=== PATIENT | male | born 1980 | race Caucasian/White ===

== ENCOUNTER 2016-08-15 09:56 | Inpatient (IN) | payer OTHER ==
[2016-08-15 10:26] VITALS: BMI 21.0
--- NOTE | 2016-08-15 12:40 | HP ---
CIWA Score - CIWA Score Nausea/Vomitin Muscle Tremors: 3 Anxiety: 3 Agitation: 3 Paroxysmal Sweats: 2 Orientation: 0-Oriented Tacttile Disturbances: 2-Mild Itch/Numbness/Burn Auditory Disturbances: 2-Mild Harshness/Frighten Visual Disturbances: 2-Mild Sensitivity Headache: 2-Mild CIWA-Ar Total Score: 22 Admission ROS BHS - HPI Chief Complaint: i need help to stop drinking alcohol,cocaine,marijuana,xanax, Allergies/Adverse Reactions: Allergies Allergy/AdvReac Type Severity Reaction Status Date / Time No Known Drug Allergies Allergy Verified 08/15/16 12:07 History of Present Illness: this 35 years old male with alcohol dependence,cocaine,marijuana,xanax, withdrawal symptom,never been in detox anxiety and depression gastritis nicotine dependence low back pain herniated disc with sciatica right multiple injury in 2013 fx left ribs,head injury,fx of left jaw Exam Limitations: No Limitations - Ebola screening Have you traveled outside of the country in the last 21 days: No Have you had contact with anyone from an Ebola affected area: No Have you been sick,other than usual withdrawal symptoms: No Do you have a fever: No - Review of Systems Constitutional: Loss of Appetite, Malaise, Night Sweats, Changes in sleep, Weakness, Unintentional Wgt. Loss EENT: reports: Nose Congestion, Other (fx of left mandible in 2013) Cardiac: reports: Palpitations GI: reports: Diarrhea, Nausea, Vomiting, Abdominal cramping, Other (gastritis) : reports: No Symptoms Reported Musculoskeletal: reports: Back Pain, Muscle Pain Integumentary: reports: Dryness Neuro: reports: Headache, Tremors Endocrine: reports: No Symptoms Reported Hematology: reports: No Symptoms Reported Psychiatric: reports: Anxious, Depressed Patient History - Patient Medical History Hx Anemia: No Hx Asthma: Yes (on albuterol inhaler) Hx Chronic Obstructive Pulmonary Disease (COPD): No Hx Cancer: No Hx Cardiac Disorders: No Hx Congestive Heart Failure: No Hx Hypertension: No Hx Hypercholesterolemia: No Hx Pacemaker: No HX Cerebrovascular Accident: No Hx Seizures: No Hx Dementia: No Hx Diabetes: No Hx Gastrointestinal Disorders: Yes (gastritis) Hx Liver Disease: No Hx Genitourinary Disorders: No Hx Sexually Transmitted Disorders: No Hx Renal Disease (ESRD): No Hx Thyroid Disease: No Hx Human Immunodeficiency Virus (HIV): No (02/10 negative last) Hx Hepatitis C: No Hx Depression: Yes (anxiety) Hx Suicide Attempt: No Hx Bipolar Disorder: No Hx Schizophrenia: No Other Medical History: no suicidal,no homicidal - Patient Surgical History Past Surgical History: Yes Other Surgical History: surgery for fx of left jaw - PPD History Previous Implant?: Yes Documented Results: Negative w/o proof Implanted On Prior R Admission?: No PPD to be Administered?: No - Smoking Cessation Smoking history: Current every day smoker Have you smoked in the past 12 months: Yes Aproximately how many cigarettes per day: 20 Hx Chewing Tobacco Use: No Initiated information on smoking cessation: Yes 'Breaking Loose' booklet given: 08/15/16 - Substance & Tx. History Hx Alcohol Use: Yes Hx Substance Use: Yes Substance Use Type: Alcohol, Cocaine, Marijuana, Tranquilizers - Substances Abused Alcohol Route: Oral Frequency: Daily Amount used: i pt daily vodka, 2 beer cans daily Age of first use: 13 Date of Last Use: 08/14/16 Cocaine Route: Inhalation Frequency: Daily Amount used: 1grm- $25 Age of first use: 17 Date of Last Use: 08/15/16 Marijuana/Hashish Route: Smoking Frequency: Daily Amount used: $5 Age of first use: 12 Date of Last Use: 08/14/16 Family Disease History - Family Disease History Family Disease History: Heart Disease: Father (alcohol) Admission Physical Exam BHS - Vital Signs Vital Signs: Vital Signs - 24 hr 08/15/16 10:24 Temperature 96 F L Pulse Rate 106 H Respiratory 16 Rate Blood Pressure 113/67 - Physical General Appearance: Yes: Moderate Distress, Tremorous, Irritable, Sweating, Anxious HEENTM: Yes: Hearing grossly Normal, Normal ENT Inspection, Pharynx Normal, Nasal Congestion, Rhinorrhea Respiratory: Yes: Lungs Clear, Normal Breath Sounds, No Respiratory Distress, Other (asthma) Neck: Yes: Within Normal Limits Breast: Yes: Within Normal Limits Cardiology: Yes: Regular Rhythm, Regular Rate, S1, S2 Abdominal: Yes: Within Normal Limits, Normal Bowel Sounds, Non Tender, Flat, Soft Genitourinary: Yes: Within Normal Limits Back: Yes: Within Normal Limits, Muscle Spasm Musculoskeletal: Yes: Back pain, Muscle Pain Extremities: Yes: Normal Range of Motion, Tremors Neurological: Yes: coil cutter II-XII NML intact, Fully Oriented, Alert, Motor Strength 5/5 Integumentary: Yes: Dry Lymphatic: Yes: Within Normal Limits - Diagnostic (1) Alcohol dependence with uncomplicated withdrawal Current Visit: Yes Status: Acute (2) Cocaine dependence Current Visit: Yes Status: Acute (3) Cannabis dependence Current Visit: Yes Status: Acute (4) Uncomplicated sedative, hypnotic or anxiolytic withdrawal Current Visit: Yes Status: Acute (5) Asthma Current Visit: Yes Status: Acute (6) Low back pain Current Visit: Yes Status: Acute (7) Sciatica, right side Current Visit: Yes Status: Acute (8) History of head injury Current Visit: Yes Status: Acute (9) Left rib fracture Current Visit: Yes Status: Acute (10) GERD (gastroesophageal reflux disease) Current Visit: Yes Status: Acute (11) Anxiety and depression Current Visit: Yes Status: Acute (12) Nicotine dependence Current Visit: Yes Status: Acute (13) Weight loss Current Visit: Yes Status: Acute (14) Mandible fracture Current Visit: Yes Status: Acute Cleared for Admission [facility] - Detox or Rehab [facility] Level of Care: Medically Managed Detox Regimen/Protocol: Librium [facility] Breath Alcohol Content Breath Alcohol Content: 0 Urine Drug Screen - Results Drug Screen Negative: No Urine Drug Screen Results: THC-Marijuana, VICKY-Cocaine, BZO-Benzodiazepines, TCA- Tricyclic Antidepress
[2016-08-15] MEDS ORDERED: MENTHOL/PHENOL 1 EACH UD MM PRN (13:10)
[2016-08-15] MEDS ORDERED: LOPERAMIDE HCL 2 MG CAPSULE PO PRN (13:10)
[2016-08-15] MEDS ORDERED: guaiFENesin/D-METHORPHAN HB 10 ML UNIT-DOSE CUPS PO PRN (13:10)
[2016-08-15] MEDS ORDERED: IBUPROFEN 400 MG TABLET (FP) PO PRN (13:10)
[2016-08-15] MEDS ORDERED: chlordiazePOXIDE HCL 25 MG CAPSULE PO PRN (13:10)
[2016-08-15] MEDS ORDERED: MAGNESIUM HYDROX 2400MG/30ML ORAL SUSPENSION 30 ML CUP PO PRN (13:10)
[2016-08-15] MEDS ORDERED: NICOTINE POLACRILEX 2 MG GUM BUC PRN (13:10)
[2016-08-15] MEDS ORDERED: ACETAMINOPHEN 325 MG TABLET (FP) PO PRN (13:10)
[2016-08-15] MEDS ORDERED: P-EPHED 60MG/TRIPROLIDI 2.5MG TABLET PO PRN (13:10)
[2016-08-15] MEDS ORDERED: MAG HYDROX/AL HYDROX/SIMETH 30 ML UNIT-DOSE CUP PO PRN (13:10)
[2016-08-15] MEDS ORDERED: hydrOXYzine PAMOATE 50 MG CAPSULE (FP) PO PRN (13:10)
[2016-08-15] MEDS ORDERED: diphenhydrAMINE HCL 50 MG CAPSULE PO PRN (13:10)
[2016-08-15] MEDS ORDERED: MAGNESIUM CITRATE 300 ML BOTTLE PO PRN (13:10)
[2016-08-15] MEDS ORDERED: ALBUTEROL SO4 6.7 GM HFA INHALER IH PRN (13:19)
[2016-08-15] MEDS ORDERED: chlordiazePOXIDE HCL 25 MG CAPSULE PO ONE (13:50)
[2016-08-15] MEDS: NICOTINE 21 MG/24 HOURS TOPICAL PATCH TD SCH (14:29)
[2016-08-15 17:47] LABS: URINE APPEARANCE CLEAR; URINE BILIRUBIN NEGATIVE (NEGATIVE); URINE BLOOD NEGATIVE (NEGATIVE); URINE COLOR YELLOW; URINE GLUCOSE (UA) NEGATIVE (NEGATIVE); URINE KETONE NEGATIVE (NEGATIVE); URINE LEUK ESTERASE NEGATIVE (NEGATIVE); URINE NITRITE NEGATIVE (NEGATIVE); URINE PROTEIN NEGATIVE (NEGATIVE); URINE UROBILINOGEN NEGATIVE E.U./dl (0.2-1.0)
[2016-08-15] MEDS: CYCLOBENZAPRINE HCL 10 MG TABLET (FP) PO PRN (19:35)
[2016-08-15] MEDS: chlordiazePOXIDE HCL 25 MG CAPSULE PO SCH ×2 (22:53→22:56)
[2016-08-15] MEDS: [UNRECOGNIZED DRUG - OTHER] PO SCH (22:56)
[2016-08-15] MEDS: ESOMEPRAZOLE MAG PO SCH (22:56)
[2016-08-15] MEDS: THIAMINE HCL 100 MG TABLET (FP) PO SCH (22:56)
[2016-08-15] MEDS: NAPROXEN PO SCH (22:56)
[2016-08-16] MEDS: chlordiazePOXIDE HCL 25 MG CAPSULE PO SCH ×4 (05:14→23:05)
--- NOTE | 2016-08-16 10:31 | PN ---
S CIWA - CIWA Score Nausea/Vomitin Muscle Tremors: 3 Anxiety: 3 Agitation: 3 Paroxysmal Sweats: 1-Minimal Palms Moist Orientation: 0-Oriented Tacttile Disturbances: 1-Very Mild Itch/Numbness Auditory Disturbances: 1-Very Mild Visual Disturbances: 1-Very Mild Sensitivity Headache: 2-Mild CIWA-Ar Total Score: 18 BHS Progress Note (SOAP) Subjective: ALERT,IRRITABLE,ANXIOUS,INTERRUPTED SLEEP,TREMOR Objective: 08/16/16 10:29 Vital Signs Temperature 97.2 F L 08/16/16 06:29 Pulse Rate 81 08/16/16 06:29 Respiratory Rate 18 08/16/16 06:29 Blood Pressure 99/60 08/16/16 06:29 O2 Sat by Pulse Oximetry (%) EKG NSR WITH SINUS ARRHYTHMIA NO CHEST PAIN,NO SOB,NO DIZZINESS Laboratory Last Values Urine Color Yellow 08/15/16 14:00 Urine Appearance Clear 08/15/16 14:00 Urine pH 5.0 (5.0-8.0) 08/15/16 14:00 Ur Specific [place] 1.029 (1.001-1.035) 08/15/16 14:00 Urine Protein Negative (NEGATIVE) 08/15/16 14:00 Urine Glucose (UA) Negative (NEGATIVE) 08/15/16 14:00 Urine Ketones Negative (NEGATIVE) 08/15/16 14:00 Urine Blood Negative (NEGATIVE) 08/15/16 14:00 Urine Nitrite Negative (NEGATIVE) 08/15/16 14:00 Urine Bilirubin Negative (NEGATIVE) 08/15/16 14:00 Urine Urobilinogen Negative E.U./dl (0.2-1.0) 08/15/16 14:00 Ur Leukocyte Esterase Negative (NEGATIVE) 08/15/16 14:00 LABS PENDING Assessment: 08/16/16 10:30 WITHDRAWAL SYMPTOM Plan: CONTINUE DETOX
[2016-08-16 11:01] LABS: HIV 1 & 2 AB NEGATIVE; HIV 1 AGp24 NEGATIVE
[2016-08-16] MEDS: NICOTINE 21 MG/24 HOURS TOPICAL PATCH TD SCH (11:15)
[2016-08-16] MEDS: PRENATAL VITAMINS W/ FOLIC ACID TABLET (FP) PO SCH (11:15)
[2016-08-16] MEDS: NAPROXEN PO SCH ×2 (11:16→22:55)
[2016-08-16] MEDS: [UNRECOGNIZED DRUG - OTHER] PO SCH ×2 (11:16→22:55)
[2016-08-16] MEDS: ESOMEPRAZOLE MAG PO SCH ×2 (11:16→22:55)
[2016-08-16 11:23] LABS: MCH 29.5 pg (25.7-33.7); MCHC 33.1 g/dl (32.0-35.9); MEAN CELL VOLUME 89.2 fl (80-96); MEAN PLT VOLUME 9.7 fl (7.5-11.1); PLATELET COUNT 271 K/MM3 (134-434); RDW 14.1 % (11.9-15.9)
--- NOTE | 2016-08-16 11:28 | EKG ---
Test Reason : Blood Pressure : / mmHG Vent. Rate : 082 BPM Atrial Rate : 082 BPM P-R Int : 146 ms QRS Dur : 074 ms QT Int : 348 ms P-R-T Axes : 075 019 049 degrees QTc Int : 406 ms SINUS RHYTHM WITH MARKED SINUS ARRHYTHMIA NO PREVIOUS ECGS AVAILABLE Confirmed by ALIZA SUN MD ([id number]) on 08/16/2016 11:27:49 AM Referred By: Confirmed By:ALIZA SUN MD
[2016-08-16 11:33] LABS: ALBUMIN 4.1 g/dl (3.4-5.0); CALCIUM 9.2 mg/dL (8.5-10.1); GLUCOSE,RANDOM 64 mg/dL (74-106)
[2016-08-16 11:36] LABS: ALK PHOS 111 U/L (45-117); ANION GAP 8 (8-16); BILIRUBIN,TOTAL 0.3 mg/dL (0.2-1.0); CO2 29 mmol/L (21-32); COCKROFT - GAULT 59.97; CREATININE 1.3 mg/dL (0.7-1.3); SGOT/AST 16 U/L (15-37); SGPT/ALT 19 U/L (12-78); TOT PROT 7.4 g/dl (6.4-8.2)
[2016-08-16 11:50] LABS: SICKLE CELL SCREEN NEGATIVE (NEGATIVE)
--- NOTE | 2016-08-16 13:38 | CONSULT ---
[facility] Psychiatric Consult - Data Date of interview: 08/16/16 Admission source: [facility] Identifying data: First admission to [facility] for this 35 y/o male seeking detox treatment for alcohol,cocaine,marijuana and xnax dependence.Patient is a father of five (common-law),domiciled,unemployed and supported on food stamps. Substance Abuse History: - Smoking Cessation. Smoking history: Current every day smoker. Have you smoked in the past 12 months: Yes. Aproximately how many cigarettes per day: 20. Hx Chewing Tobacco Use: No. Initiated information on smoking cessation: Yes. 'Breaking Loose' booklet given: 08/15/16. - Substance & Tx. History. Hx Alcohol Use: Yes. Hx Substance Use: Yes. Substance Use Type : Alcohol, Cocaine, Marijuana, Tranquilizers. - Substances Abused. Alcohol. Route: Oral. Frequency: Daily. Amount used: i pt daily vodka, 2 beer cans daily. Age of first use: 13. Date of Last Use: 08/14/16. Cocaine. Route: Inhalation. Frequency: Daily. Amount used: 1grm- $25. Age of first use: 17. Date of Last Use: 08/15/16. Marijuana/Hashish. Route: Smoking. Frequency: Daily. Amount used: $5. Age of first use: 12. Date of Last Use: 08/14/16. Confirmed by patient. Medical History: History of gastritis,GERD,bronchial asthma,herniated disk ( lumbar spine),chronic back pain and past orthopedic care for fracture of left mandible (2003). Psychiatric History: Patient denies. Physical/Sexual Abuse/Trauma History: Patient denies. Additional Comment: Urine Drug Screen Results: THC-Marijuana, VICKY-Cocaine, BZO- Benzodiazepines, TCA-Tricyclic Antidepressant.Noted. Mental Status Exam - Mental Status Exam Alert and Oriented to: Time, Place Cognitive Function: Good Patient Appearance: Well Groomed Mood: Withdrawn, Anxious, Apprehensive Affect: Mood Congruent, Constricted Patient Behavior: Fatigued, Appropriate, Cooperative Speech Pattern: Clear (bilingual) Voice Loudness: Normal Thought Process: Goal Oriented Thought Disorder: Not Present Hallucinations: Denies Suicidal Ideation: Denies Homicidal Ideation: Denies Insight/Judgement: Poor Sleep: Well Appetite: Good Muscle strength/Tone: Normal Gait/Station: Normal Psychiatric Findings - Problem List ([place] 1, 2,3) (1) Alcohol dependence with uncomplicated withdrawal Current Visit: Yes Status: Acute (2) Cannabis dependence Current Visit: Yes Status: Acute (3) Cocaine dependence Current Visit: Yes Status: Acute (4) Uncomplicated sedative, hypnotic or anxiolytic withdrawal Current Visit: Yes Status: Acute (5) Nicotine dependence Current Visit: Yes Status: Acute (6) Substance induced mood disorder Current Visit: Yes Status: Acute (7) Asthma Current Visit: Yes Status: Chronic (8) GERD (gastroesophageal reflux disease) Current Visit: Yes Status: Chronic (9) History of head injury Current Visit: Yes Status: Chronic (10) Low back pain Current Visit: Yes Status: Chronic (11) Sciatica, right side Current Visit: Yes Status: Chronic - Initial Treatment Plan Initial Treatment Plan: Psychoeducation.Detoxification.Observation.
[2016-08-16] MEDS: CYCLOBENZAPRINE HCL 10 MG TABLET (FP) PO PRN (17:22)
[2016-08-16] MEDS: THIAMINE HCL 100 MG TABLET (FP) PO SCH (22:55)
[2016-08-17] MEDS: chlordiazePOXIDE HCL 25 MG CAPSULE PO SCH ×2 (05:46→11:35)
[2016-08-17] MEDS: NAPROXEN PO SCH (11:34)
[2016-08-17] MEDS: ESOMEPRAZOLE MAG PO SCH (11:34)
[2016-08-17] MEDS: [UNRECOGNIZED DRUG - OTHER] PO SCH (11:34)
[2016-08-17] MEDS: NICOTINE 21 MG/24 HOURS TOPICAL PATCH TD SCH (11:35)
[2016-08-17] MEDS: PRENATAL VITAMINS W/ FOLIC ACID TABLET (FP) PO SCH (11:35)
[2016-08-17] MEDS: CYCLOBENZAPRINE HCL 10 MG TABLET (FP) PO PRN (11:36)
[2016-08-17 14:30] VITALS: BP 106/62; PULSE 114; TEMP 98.4
[2016-08-17] MEDS ORDERED: chlordiazePOXIDE 5 MG CAPSULE PO SCH (17:00)
--- NOTE | 2016-08-17 17:07 | PN ---
S CIWA - CIWA Score Nausea/Vomitin Muscle Tremors: 3 Anxiety: 2 Agitation: 2 Paroxysmal Sweats: 3 Orientation: 1-Uncertain about Date Tacttile Disturbances: 0-None Auditory Disturbances: 0-None Visual Disturbances: 3-Moderate Sensitivity Headache: 0-None Present CIWA-Ar Total Score: 16 BHS Progress Note (SOAP) Subjective: Stomach Cramping, Tremors, Fatigue, Sweating, Lower Back ache. Objective: PT. A & O X 2 (DISORIENTED ABOUT DAY / DATE). 08/17/16 17:05 Vital Signs Temperature 98.4 F 08/17/16 14:29 Pulse Rate 114 H 08/17/16 14:29 Respiratory Rate 16 08/17/16 14:29 Blood Pressure 106/62 08/17/16 14:29 O2 Sat by Pulse Oximetry (%) Laboratory Last Values WBC 11.0 K/mm3 (4.0-10.0) H 08/16/16 06:00 RBC 4.85 M/mm3 (4.00-5.60) 08/16/16 06:00 Hgb 14.3 GM/dL (11.7-16.9) 08/16/16 06:00 Hct 43.3 % (35.4-49) 08/16/16 06:00 MCV 89.2 fl (80-96) 08/16/16 06:00 MCHC 33.1 g/dl (32.0-35.9) 08/16/16 06:00 RDW 14.1 % (11.9-15.9) 08/16/16 06:00 Plt Count 271 K/MM3 (134-434) 08/16/16 06:00 MPV 9.7 fl (7.5-11.1) 08/16/16 06:00 Sickle Cell Screen Negative (NEGATIVE) 08/16/16 06:00 Sodium 142 mmol/L (136-145) 08/16/16 06:00 Potassium 4.1 mmol/L (3.5-5.1) 08/16/16 06:00 Chloride 105 mmol/L (98-107) 08/16/16 06:00 Carbon Dioxide 29 mmol/L (21-32) 08/16/16 06:00 Anion Gap 8 (8-16) 08/16/16 06:00 BUN 17 mg/dL (7-18) 08/16/16 06:00 Creatinine 1.3 mg/dL (0.7-1.3) 08/16/16 06:00 Creat Clearance w eGFR > 60 (>60) 08/16/16 06:00 Random Glucose 64 mg/dL (74-106) L 08/16/16 06:00 Calcium 9.2 mg/dL (8.5-10.1) 08/16/16 06:00 Total Bilirubin 0.3 mg/dL (0.2-1.0) 08/16/16 06:00 AST 16 U/L (15-37) 08/16/16 06:00 ALT 19 U/L (12-78) 08/16/16 06:00 Alkaline Phosphatase 111 U/L (45-117) 08/16/16 06:00 Total Protein 7.4 g/dl (6.4-8.2) 08/16/16 06:00 Albumin 4.1 g/dl (3.4-5.0) 08/16/16 06:00 Urine Color Yellow 08/15/16 14:00 Urine Appearance Clear 08/15/16 14:00 Urine pH 5.0 (5.0-8.0) 08/15/16 14:00 Ur Specific [place] 1.029 (1.001-1.035) 08/15/16 14:00 Urine Protein Negative (NEGATIVE) 08/15/16 14:00 Urine Glucose (UA) Negative (NEGATIVE) 08/15/16 14:00 Urine Ketones Negative (NEGATIVE) 08/15/16 14:00 Urine Blood Negative (NEGATIVE) 08/15/16 14:00 Urine Nitrite Negative (NEGATIVE) 08/15/16 14:00 Urine Bilirubin Negative (NEGATIVE) 08/15/16 14:00 Urine Urobilinogen Negative E.U./dl (0.2-1.0) 08/15/16 14:00 Ur Leukocyte Esterase Negative (NEGATIVE) 08/15/16 14:00 RPR Titer Nonreactive (NONREACTIVE) 08/16/16 06:00 HIV 1&2 Antibody Screen Negative 08/15/16 12:00 HIV P24 Antigen Negative 08/15/16 12:00 LABS NOTED. Assessment: 08/17/16 17:06 WITHDRAWAL SYMPTOMS. Plan: CONTINUE DETOX. ADVISED PATIENT TO FOLLOW-UP WITH CHECKING CLERK / REHAB MEDICAL PROVIDER AFTER DISCHARGE FROM DETOX FOR GENERAL MEDICAL ASSESSMENT AND FOR ABNORMAL ADMISSION LAB VALUES.
--- NOTE | 2016-08-17 17:56 | DS ---
[facility] Detox Discharge Summary Admission Date: 08/15/16 Discharge Date: 08/17/16 - History Present History: Alcohol Dependence, Cannabis Dependence, Cocaine Dependence, Sedative Dependence Additional Comments: ADVISED PATIENT TO FOLLOW-UP WITH [facility] FOR GENERAL MEDICAL ASSESSMENT. Pertinent Past History: Asthma, Anxiety, Gastritis, - Physical Exam Results Vital Signs: Vital Signs Temperature 98.4 F 08/17/16 14:29 Pulse Rate 114 H 08/17/16 14:29 Respiratory Rate 16 08/17/16 14:29 Blood Pressure 106/62 08/17/16 14:29 O2 Sat by Pulse Oximetry (%) Pertinent Admission Physical Exam Findings: WITHDRAWAL SYMPTOMS. Laboratory Last Values WBC 11.0 K/mm3 (4.0-10.0) H 08/16/16 06:00 RBC 4.85 M/mm3 (4.00-5.60) 08/16/16 06:00 Hgb 14.3 GM/dL (11.7-16.9) 08/16/16 06:00 Hct 43.3 % (35.4-49) 08/16/16 06:00 MCV 89.2 fl (80-96) 08/16/16 06:00 MCHC 33.1 g/dl (32.0-35.9) 08/16/16 06:00 RDW 14.1 % (11.9-15.9) 08/16/16 06:00 Plt Count 271 K/MM3 (134-434) 08/16/16 06:00 MPV 9.7 fl (7.5-11.1) 08/16/16 06:00 Sickle Cell Screen Negative (NEGATIVE) 08/16/16 06:00 Sodium 142 mmol/L (136-145) 08/16/16 06:00 Potassium 4.1 mmol/L (3.5-5.1) 08/16/16 06:00 Chloride 105 mmol/L (98-107) 08/16/16 06:00 Carbon Dioxide 29 mmol/L (21-32) 08/16/16 06:00 Anion Gap 8 (8-16) 08/16/16 06:00 BUN 17 mg/dL (7-18) 08/16/16 06:00 Creatinine 1.3 mg/dL (0.7-1.3) 08/16/16 06:00 Creat Clearance w eGFR > 60 (>60) 08/16/16 06:00 Random Glucose 64 mg/dL (74-106) L 08/16/16 06:00 Calcium 9.2 mg/dL (8.5-10.1) 08/16/16 06:00 Total Bilirubin 0.3 mg/dL (0.2-1.0) 08/16/16 06:00 AST 16 U/L (15-37) 08/16/16 06:00 ALT 19 U/L (12-78) 08/16/16 06:00 Alkaline Phosphatase 111 U/L (45-117) 08/16/16 06:00 Total Protein 7.4 g/dl (6.4-8.2) 08/16/16 06:00 Albumin 4.1 g/dl (3.4-5.0) 08/16/16 06:00 Urine Color Yellow 08/15/16 14:00 Urine Appearance Clear 08/15/16 14:00 Urine pH 5.0 (5.0-8.0) 08/15/16 14:00 Ur Specific [place] 1.029 (1.001-1.035) 08/15/16 14:00 Urine Protein Negative (NEGATIVE) 08/15/16 14:00 Urine Glucose (UA) Negative (NEGATIVE) 08/15/16 14:00 Urine Ketones Negative (NEGATIVE) 08/15/16 14:00 Urine Blood Negative (NEGATIVE) 08/15/16 14:00 Urine Nitrite Negative (NEGATIVE) 08/15/16 14:00 Urine Bilirubin Negative (NEGATIVE) 08/15/16 14:00 Urine Urobilinogen Negative E.U./dl (0.2-1.0) 08/15/16 14:00 Ur Leukocyte Esterase Negative (NEGATIVE) 08/15/16 14:00 RPR Titer Nonreactive (NONREACTIVE) 08/16/16 06:00 HIV 1&2 Antibody Screen Negative 08/15/16 12:00 HIV P24 Antigen Negative 08/15/16 12:00 LABS NOTED. - Treatment Hospital Course: Detoxed Safely - Medication Discharge Medications: Ambulatory Orders Albuterol Sulfate Inhaler - [Ventolin Hfa Inhaler -] 1 - 2 inh PO QID PRN Cyclobenzaprine HCl [Flexeril 10 mg] 10 mg PO BID PRN 08/15/16 Naproxen/Esomeprazole Mag [Vimovo Dr 500-20 mg Tablet] 1 each PO BID 08/15/16 - Diagnosis (1) Alcohol dependence with uncomplicated withdrawal Current Visit: Yes Status: Acute (2) Anxiety and depression Current Visit: Yes Status: Chronic (3) Cannabis dependence Current Visit: Yes Status: Acute (4) Cocaine dependence Current Visit: Yes Status: Acute Qualifiers: Substance use status: uncomplicated Qualified Code(s): F14.20 - Cocaine dependence, uncomplicated (5) Left rib fracture Current Visit: Yes Status: Acute Qualifiers: Encounter type: sequela (6) Mandible fracture Current Visit: Yes Status: Acute Qualifiers: Encounter type: sequela Laterality: unspecified laterality (7) Nicotine dependence Current Visit: Yes Status: Chronic Qualifiers: Nicotine product type: cigarettes Substance use status: uncomplicated Qualified Code(s): F17.210 - Nicotine dependence, cigarettes, uncomplicated (8) Substance induced mood disorder Current Visit: Yes Status: Acute (9) Uncomplicated sedative, hypnotic or anxiolytic withdrawal Current Visit: Yes Status: Acute (10) Weight loss Current Visit: Yes Status: Acute (11) Asthma Current Visit: Yes Status: Chronic Qualifiers: Asthma severity: mild intermittent Asthma complication type: uncomplicated Qualified Code(s): J45.20 - Mild intermittent asthma, uncomplicated (12) GERD (gastroesophageal reflux disease) Current Visit: Yes Status: Chronic Qualifiers: Esophagitis presence: without esophagitis Qualified Code(s): K21.9 - Gastro-esophageal reflux disease without esophagitis (13) History of head injury Current Visit: Yes Status: Chronic (14) Low back pain Current Visit: Yes Status: Chronic Qualifiers: Chronicity: unspecified Back pain laterality: unspecified Sciatica presence: unspecified whether sciatica present Qualified Code(s): M54.5 - Low back pain (15) Sciatica, right side Current Visit: Yes Status: Chronic - AMA Did Patient Leave Against Medical Advice: Yes (PATIENT HAD FAMILY EMERGENCY TO ATTEND TO AND COULD NOT COMPLETE DETOX.)
[2016-08-18] MEDS ORDERED: chlordiazePOXIDE HCL 10 MG CAPSULE PO SCH (17:00)
== END 2016-08-17 18:15 | disposition left against medical advice (07) | DRG 770 ==
LOC: YASAS 09:56 → Y6N 13:20
PROVIDERS: ADMIT Internal Medicine Addiction Medicine; ATTEND Internal Medicine Addiction Medicine
PROC: HZ2ZZZZ Detoxification Services for Substance Abuse Treatment (ICD-10-PCS; principal; 2016-08-17)
DX: F10.230 Alcohol dependence with withdrawal, uncomplicated (principal); F13.230 Sedative, hypnotic or anxiolytic dependence with withdrawal, uncomplicated; F14.20 Cocaine dependence, uncomplicated; F12.20 Cannabis dependence, uncomplicated; F17.210 Nicotine dependence, cigarettes, uncomplicated; F19.24 Other psychoactive substance dependence with psychoactive substance-induced mood disorder; J45.20 Mild intermittent asthma, uncomplicated; K21.9 Gastro-esophageal reflux disease without esophagitis; M54.41 Lumbago with sciatica, right side; R63.4 Abnormal weight loss; Z68.21 Body mass index [BMI] 21.0-21.9, adult; Z87.81 Personal history of (healed) traumatic fracture
CPT/HCPCS: 36415; 80053; 81003; 85027; 85660; 86593; 87389; 93005; 93010

== ENCOUNTER 2016-08-20 10:22 | Inpatient (IN) | payer OTHER ==
[2016-08-20 12:22] VITALS: BMI 22.1
--- NOTE | 2016-08-20 13:02 | HP ---
Admission ROS [facility] Chief Complaint: I need to be here for rehab for continue treatment. Allergies/Adverse Reactions: Allergies Allergy/AdvReac Type Severity Reaction Status Date / Time No Known Drug Allergies Allergy Verified 08/20/16 12:45 History of Present Illness: pt is a 35yr old male with a history of alcohol and cocaine dependence seeking detox for treatment. Exam Limitations: No Limitations - Ebola screening Have you traveled outside of the country in the last 21 days: No Have you had contact with anyone from an Ebola affected area: No Have you been sick,other than usual withdrawal symptoms: No - Review of Systems Constitutional: Chills, Loss of Appetite, Night Sweats, Changes in sleep EENT: reports: Tearing Respiratory: reports: Cough Cardiac: reports: No Symptoms Reported GI: reports: Poor Fluid Intake, Indigestion : reports: No Symptoms Reported Musculoskeletal: reports: Back Pain Integumentary: reports: Flushing, Sweating Neuro: reports: Headache, Tingling, Tremors Endocrine: reports: Excessive Sweating, Flushing Hematology: reports: No Symptoms Reported Psychiatric: reports: Judgement Intact, Mood/Affect Appropiate, Orientated x3, Agitated, Anxious Other Systems: Reviewed and Negative Patient History - Patient Medical History Hx Anemia: No Hx Asthma: Yes (on albuterol inhaler) Hx Chronic Obstructive Pulmonary Disease (COPD): No Hx Cancer: No Hx Cardiac Disorders: No Hx Congestive Heart Failure: No Hx Hypertension: No Hx Hypercholesterolemia: No Hx Pacemaker: No HX Cerebrovascular Accident: No Hx Seizures: No Hx Dementia: No Hx Diabetes: No Hx Gastrointestinal Disorders: Yes (gastritis) Hx Liver Disease: No Hx Genitourinary Disorders: No Hx Sexually Transmitted Disorders: No Hx Renal Disease (ESRD): No Hx Thyroid Disease: No Hx Human Immunodeficiency Virus (HIV): No (negative) Hx Hepatitis C: No (negative) Hx Depression: Yes (anxiety) Hx Suicide Attempt: No (denies) Hx Bipolar Disorder: No Hx Schizophrenia: No - Patient Surgical History Past Surgical History: Yes Hx Neurologic Surgery: (posterior scalp 57 stitiches after razor cut 2013) Hx Cataract Extraction: No Hx Cardiac Surgery: No Hx Lung Surgery: No Hx Breast Surgery: No Hx Breast Biopsy: No Hx Abdominal Surgery: No Hx Appendectomy: No Hx Cholecystectomy: No Hx Genitourinary Surgery: No Hx Section: No Hx Orthopedic Surgery: No Other Surgical History: surgery for fx of left jaw - PPD History Previous Implant?: Yes Documented Results: Negative w/o proof PPD to be Administered?: Yes - Reproductive History Patient is a Female of Child Bearing Age (11 -55 yrs old): No - Smoking Cessation Smoking history: Current every day smoker Have you smoked in the past 12 months: Yes Aproximately how many cigarettes per day: 20 Hx Chewing Tobacco Use: No Initiated information on smoking cessation: Yes 'Breaking Loose' booklet given: 08/20/16 - Substance & Tx. History Hx Alcohol Use: Yes Hx Substance Use: Yes Substance Use Type: Alcohol, Cocaine Hx Substance Use Treatment: Yes - Substances Abused Alcohol Route: Oral Frequency: 1-2 times per week Amount used: 1-3 beer Age of first use: 13 Date of Last Use: 08/17/16 Cocaine Route: Inhalation Frequency: 1-2 times per week Amount used: 1 gram Age of first use: 13 Date of Last Use: 08/17/16 Marijuana/Hashish Route: Smoking Frequency: Daily Amount used: 1 joint Age of first use: 13 Date of Last Use: 08/19/16 Family Disease History - Family Disease History Family Disease History: Heart Disease: Father (alcohol) Admission Physical Exam [facility] - Vital Signs Vital Signs: Vital Signs - 24 hr 08/20/16 12:19 Temperature 95.4 F L Pulse Rate 103 H Respiratory 20 Rate Blood Pressure 127/72 - Physical General Appearance: Yes: Appropriately Dressed, Moderate Distress, Thin, Irritable, Anxious HEENTM: Yes: Normal Voice Respiratory: Yes: Lungs Clear, Normal Breath Sounds, No Respiratory Distress Neck: Yes: No masses,lesions,Nodules Breast: Yes: Within Normal Limits Cardiology: Yes: Regular Rhythm, Regular Rate, S1, S2 Abdominal: Yes: Normal Bowel Sounds, Non Tender, Soft Genitourinary: Yes: Within Normal Limits Back: Yes: Normal Inspection Musculoskeletal: Yes: full range of Motion Extremities: Yes: Normal Capillary Refill, Tremors Neurological: Yes: Fully Oriented, Alert, Normal Response Integumentary: Yes: Normal Color Lymphatic: Yes: Within Normal Limits - Diagnostic (1) Asthma Current Visit: Yes Status: Chronic Qualifiers: Asthma severity: mild intermittent Asthma complication type: uncomplicated Qualified Code(s): J45.20 - Mild intermittent asthma, uncomplicated (2) Cannabis dependence Current Visit: Yes Status: Chronic (3) Cocaine dependence Current Visit: Yes Status: Chronic Qualifiers: Substance use status: uncomplicated Qualified Code(s): F14.20 - Cocaine dependence, uncomplicated (4) GERD (gastroesophageal reflux disease) Current Visit: Yes Status: Chronic Qualifiers: Esophagitis presence: without esophagitis Qualified Code(s): K21.9 - Gastro-esophageal reflux disease without esophagitis (5) Low back pain Current Visit: Yes Status: Chronic Qualifiers: Chronicity: chronic Back pain laterality: unspecified Sciatica presence: unspecified whether sciatica present Qualified Code(s): M54.5 - Low back pain; G89.29 - Other chronic pain (6) Nicotine dependence Current Visit: Yes Status: Chronic Qualifiers: Nicotine product type: cigarettes Substance use status: uncomplicated Qualified Code(s): F17.210 - Nicotine dependence, cigarettes, uncomplicated Cleared for Admission [facility] - Detox or Rehab [facility] Level of Care: Medically Managed Claeared for Rehab Admission: Yes S Breath Alcohol Content Breath Alcohol Content: 0 Urine Drug Screen - Results Drug Screen Negative: No Urine Drug Screen Results: THC-Marijuana, VICKY-Cocaine, BZO-Benzodiazepines, TCA- Tricyclic Antidepress
[2016-08-20] MEDS ORDERED: guaiFENesin/D-METHORPHAN HB 10 ML UNIT-DOSE CUPS PO PRN (13:30)
[2016-08-20] MEDS ORDERED: IBUPROFEN 400 MG TABLET (FP) PO PRN (13:30)
[2016-08-20] MEDS ORDERED: MENTHOL/PHENOL 1 EACH UD MM PRN (13:30)
[2016-08-20] MEDS ORDERED: P-EPHED 60MG/TRIPROLIDI 2.5MG TABLET PO PRN (13:30)
[2016-08-20] MEDS ORDERED: ACETAMINOPHEN 325 MG TABLET (FP) PO PRN (13:30)
[2016-08-20] MEDS ORDERED: MAG HYDROX/AL HYDROX/SIMETH 30 ML UNIT-DOSE CUP PO PRN (13:30)
[2016-08-20] MEDS ORDERED: MAGNESIUM CITRATE 300 ML BOTTLE PO PRN (13:30)
[2016-08-20] MEDS ORDERED: MAGNESIUM HYDROX 2400MG/30ML ORAL SUSPENSION 30 ML CUP PO PRN (13:30)
[2016-08-20] MEDS ORDERED: LOPERAMIDE HCL 2 MG CAPSULE PO PRN (13:30)
[2016-08-20] MEDS ORDERED: PT OWN MED DRAWER 7, Y5N ONE (15:40)
[2016-08-20] MEDS: hydrOXYzine PAMOATE 50 MG CAPSULE (FP) PO PRN (17:43)
[2016-08-20 17:59] LABS: URINE APPEARANCE CLEAR; URINE BILIRUBIN NEGATIVE (NEGATIVE); URINE BLOOD NEGATIVE (NEGATIVE); URINE COLOR LTYELLOW; URINE GLUCOSE (UA) NEGATIVE (NEGATIVE); URINE KETONE NEGATIVE (NEGATIVE); URINE NITRITE NEGATIVE (NEGATIVE); URINE PROTEIN NEGATIVE (NEGATIVE); URINE UROBILINOGEN NEGATIVE E.U./dl (0.2-1.0)
[2016-08-20 18:19] LABS: URINE LEUK ESTERASE TRACE (NEGATIVE)
[2016-08-20 20:31] LABS: URINE MUCUS RARE; URINE RBC 3 /hpf (0-3); URINE WBC 6 /hpf (3-5)
[2016-08-20] MEDS: CYCLOBENZAPRINE HCL 10 MG TABLET (FP) PO PRN (21:24)
[2016-08-20] MEDS: NAPROXEN 500 MG TABLET (FP) PO SCH (21:24)
[2016-08-20] MEDS: THIAMINE HCL 100 MG TABLET (FP) PO SCH (21:24)
[2016-08-20] MEDS: NICOTINE POLACRILEX 4 MG GUM BC PRN (21:27)
[2016-08-20] MEDS: NICOTINE 21 MG/24 HOURS TOPICAL PATCH TD SCH (23:14)
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
[2016-08-21] MEDS: CYCLOBENZAPRINE HCL 10 MG TABLET (FP) PO PRN ×2 (07:00→15:48)
--- NOTE | 2016-08-21 08:24 | EKG ---
Test Reason : Blood Pressure : / mmHG Vent. Rate : 085 BPM Atrial Rate : 085 BPM P-R Int : 154 ms QRS Dur : 082 ms QT Int : 338 ms P-R-T Axes : 079 029 049 degrees QTc Int : 402 ms SINUS RHYTHM WITH MARKED SINUS ARRHYTHMIA POSSIBLE LEFT ATRIAL ENLARGEMENT BORDERLINE ECG WHEN COMPARED WITH ECG OF 15-AUG-2016 13:10, NO SIGNIFICANT CHANGE WAS FOUND Confirmed by EVITA BELCHER MD ([id number]) on 08/21/2016 8:24:29 AM Referred By: Confirmed By:EVITA BELCHER MD
[2016-08-21] MEDS: PANTOPRAZOLE 40 MG TABLET (FP) PO SCH (09:32)
[2016-08-21] MEDS: NICOTINE 21 MG/24 HOURS TOPICAL PATCH TD SCH (09:32)
[2016-08-21] MEDS: NAPROXEN 500 MG TABLET (FP) PO SCH ×2 (09:32→21:12)
[2016-08-21] MEDS: PRENATAL VITAMINS W/ FOLIC ACID TABLET (FP) PO SCH (09:32)
[2016-08-21] MEDS ORDERED: NICOTINE 21 MG/24 HOURS TOPICAL PATCH TD SCH (10:00)
[2016-08-21] MEDS ORDERED: LIDOCAINE 5% TOPICAL PATCH TP ONE ×2 (15:38→20:30)
[2016-08-21] MEDS: THIAMINE HCL 100 MG TABLET (FP) PO SCH (21:10)
[2016-08-21] MEDS ORDERED: PT OWN MED DRAWER 7, Y5N ONE ×2 (23:28→23:39)
[2016-08-21] MEDS: NICOTINE POLACRILEX 4 MG GUM BC PRN (23:37)
[2016-08-21] MEDS: ALBUTEROL SO4 18 GM HFA INHALER IH PRN (23:37)
[2016-08-22] MEDS: CYCLOBENZAPRINE HCL 10 MG TABLET (FP) PO PRN ×2 (06:16→15:54)
[2016-08-22] MEDS: NAPROXEN 500 MG TABLET (FP) PO SCH ×2 (09:49→21:06)
[2016-08-22] MEDS: PRENATAL VITAMINS W/ FOLIC ACID TABLET (FP) PO SCH (09:49)
[2016-08-22] MEDS: PANTOPRAZOLE 40 MG TABLET (FP) PO SCH (09:49)
[2016-08-22] MEDS: NICOTINE 21 MG/24 HOURS TOPICAL PATCH TD SCH (09:49)
[2016-08-22] MEDS: LIDOCAINE 5% TOPICAL PATCH TP SCH (09:50)
[2016-08-22] MEDS: diphenhydrAMINE HCL 50 MG CAPSULE PO PRN (21:06)
[2016-08-22] MEDS: THIAMINE HCL 100 MG TABLET (FP) PO SCH (21:06)
[2016-08-22] MEDS: NICOTINE POLACRILEX 4 MG GUM BC PRN (21:07)
[2016-08-23] MEDS: CYCLOBENZAPRINE HCL 10 MG TABLET (FP) PO PRN ×3 (06:43→23:33)
[2016-08-23] MEDS: PANTOPRAZOLE 40 MG TABLET (FP) PO SCH (09:38)
[2016-08-23] MEDS: NAPROXEN 500 MG TABLET (FP) PO SCH ×2 (09:38→21:30)
[2016-08-23] MEDS: PRENATAL VITAMINS W/ FOLIC ACID TABLET (FP) PO SCH (09:38)
[2016-08-23] MEDS: LIDOCAINE 5% TOPICAL PATCH TP SCH ×2 (09:39→13:35)
[2016-08-23] MEDS: NICOTINE 21 MG/24 HOURS TOPICAL PATCH TD SCH (09:39)
[2016-08-23] MEDS: hydrOXYzine PAMOATE 50 MG CAPSULE (FP) PO PRN ×2 (15:17→23:33)
[2016-08-23] MEDS ORDERED: PT OWN MED DRAWER 7, Y5N ONE (15:28)
[2016-08-23] MEDS: THIAMINE HCL 100 MG TABLET (FP) PO SCH (21:29)
[2016-08-23] MEDS: diphenhydrAMINE HCL 50 MG CAPSULE PO PRN (21:30)
[2016-08-23] MEDS: NICOTINE POLACRILEX 4 MG GUM BC PRN (21:32)
[2016-08-24] MEDS: PRENATAL VITAMINS W/ FOLIC ACID TABLET (FP) PO SCH (09:41)
[2016-08-24] MEDS: NICOTINE 21 MG/24 HOURS TOPICAL PATCH TD SCH (09:41)
[2016-08-24] MEDS: PANTOPRAZOLE 40 MG TABLET (FP) PO SCH (09:41)
[2016-08-24] MEDS: CYCLOBENZAPRINE HCL 10 MG TABLET (FP) PO PRN ×2 (09:41→21:15)
[2016-08-24] MEDS: hydrOXYzine PAMOATE 50 MG CAPSULE (FP) PO PRN ×2 (09:41→18:23)
[2016-08-24] MEDS: NAPROXEN 500 MG TABLET (FP) PO SCH ×2 (09:41→21:15)
[2016-08-24] MEDS: LIDOCAINE 5% TOPICAL PATCH TP SCH (09:43)
[2016-08-24] MEDS: NICOTINE POLACRILEX 4 MG GUM BC PRN (21:15)
[2016-08-24] MEDS: THIAMINE HCL 100 MG TABLET (FP) PO SCH (21:15)
[2016-08-24] MEDS: diphenhydrAMINE HCL 50 MG CAPSULE PO PRN (21:15)
[2016-08-25] MEDS: NAPROXEN 500 MG TABLET (FP) PO SCH ×2 (09:35→21:17)
[2016-08-25] MEDS: PANTOPRAZOLE 40 MG TABLET (FP) PO SCH (09:35)
[2016-08-25] MEDS: PRENATAL VITAMINS W/ FOLIC ACID TABLET (FP) PO SCH (09:35)
[2016-08-25] MEDS: CYCLOBENZAPRINE HCL 10 MG TABLET (FP) PO PRN ×2 (09:36→21:17)
[2016-08-25] MEDS: NICOTINE 21 MG/24 HOURS TOPICAL PATCH TD SCH (09:36)
[2016-08-25] MEDS: hydrOXYzine PAMOATE 50 MG CAPSULE (FP) PO PRN ×2 (09:36→21:17)
[2016-08-25] MEDS: LIDOCAINE 5% TOPICAL PATCH TP SCH (10:40)
[2016-08-25] MEDS: THIAMINE HCL 100 MG TABLET (FP) PO SCH (21:17)
[2016-08-25] MEDS: NICOTINE POLACRILEX 4 MG GUM BC PRN (21:17)
[2016-08-26] MEDS: PANTOPRAZOLE 40 MG TABLET (FP) PO SCH (09:29)
[2016-08-26] MEDS: PRENATAL VITAMINS W/ FOLIC ACID TABLET (FP) PO SCH (09:29)
[2016-08-26] MEDS: NICOTINE 21 MG/24 HOURS TOPICAL PATCH TD SCH (09:30)
[2016-08-26] MEDS: NAPROXEN 500 MG TABLET (FP) PO SCH ×2 (09:30→21:37)
[2016-08-26] MEDS: LIDOCAINE 5% TOPICAL PATCH TP SCH (09:30)
[2016-08-26] MEDS: hydrOXYzine PAMOATE 50 MG CAPSULE (FP) PO PRN ×2 (09:31→21:33)
[2016-08-26] MEDS: CYCLOBENZAPRINE HCL 10 MG TABLET (FP) PO PRN ×2 (09:31→21:33)
[2016-08-26] MEDS: GABAPENTIN 100 MG CAPSULE (FP) PO SCH ×2 (15:35→21:33)
[2016-08-26] MEDS: THIAMINE HCL 100 MG TABLET (FP) PO SCH (21:33)
[2016-08-26] MEDS: NICOTINE POLACRILEX 4 MG GUM BC PRN (21:34)
[2016-08-26] MEDS: AMMONIUM LACTATE 12% LOTION 225 GM BOTTLE TP PRN (21:36)
[2016-08-27] MEDS: GABAPENTIN 100 MG CAPSULE (FP) PO SCH ×3 (06:07→21:18)
[2016-08-27] MEDS: PANTOPRAZOLE 40 MG TABLET (FP) PO SCH (09:34)
[2016-08-27] MEDS: PRENATAL VITAMINS W/ FOLIC ACID TABLET (FP) PO SCH (09:34)
[2016-08-27] MEDS: NAPROXEN 500 MG TABLET (FP) PO SCH ×2 (09:34→21:19)
[2016-08-27] MEDS: NICOTINE 21 MG/24 HOURS TOPICAL PATCH TD SCH (09:35)
[2016-08-27] MEDS: hydrOXYzine PAMOATE 50 MG CAPSULE (FP) PO PRN (09:36)
[2016-08-27] MEDS: CYCLOBENZAPRINE HCL 10 MG TABLET (FP) PO PRN ×2 (09:36→21:19)
[2016-08-27] MEDS: LIDOCAINE 5% TOPICAL PATCH TP SCH (09:38)
[2016-08-27] MEDS: THIAMINE HCL 100 MG TABLET (FP) PO SCH (21:19)
[2016-08-28] MEDS: GABAPENTIN 100 MG CAPSULE (FP) PO SCH ×3 (06:15→21:27)
[2016-08-28] MEDS: PRENATAL VITAMINS W/ FOLIC ACID TABLET (FP) PO SCH (09:34)
[2016-08-28] MEDS: NICOTINE 21 MG/24 HOURS TOPICAL PATCH TD SCH (09:34)
[2016-08-28] MEDS: NAPROXEN 500 MG TABLET (FP) PO SCH ×2 (09:34→22:46)
[2016-08-28] MEDS: PANTOPRAZOLE 40 MG TABLET (FP) PO SCH (09:34)
[2016-08-28] MEDS: LIDOCAINE 5% TOPICAL PATCH TP SCH (09:35)
[2016-08-28] MEDS: hydrOXYzine PAMOATE 50 MG CAPSULE (FP) PO PRN (09:35)
[2016-08-28] MEDS: CYCLOBENZAPRINE HCL 10 MG TABLET (FP) PO PRN ×2 (09:36→21:26)
[2016-08-28] MEDS: THIAMINE HCL 100 MG TABLET (FP) PO SCH (21:27)
[2016-08-28] MEDS: NICOTINE POLACRILEX 4 MG GUM BC PRN (21:28)
[2016-08-28] MEDS: ALBUTEROL SO4 18 GM HFA INHALER IH PRN (23:21)
[2016-08-28] MEDS ORDERED: PT OWN MED DRAWER 7, Y5N ONE (23:22)
[2016-08-29] MEDS: GABAPENTIN 100 MG CAPSULE (FP) PO SCH ×3 (06:19→21:51)
[2016-08-29] MEDS: NICOTINE 21 MG/24 HOURS TOPICAL PATCH TD SCH (09:37)
[2016-08-29] MEDS: CYCLOBENZAPRINE HCL 10 MG TABLET (FP) PO PRN ×2 (09:37→21:50)
[2016-08-29] MEDS: LIDOCAINE 5% TOPICAL PATCH TP SCH (09:37)
[2016-08-29] MEDS: NAPROXEN 500 MG TABLET (FP) PO SCH ×2 (09:37→21:51)
[2016-08-29] MEDS: PRENATAL VITAMINS W/ FOLIC ACID TABLET (FP) PO SCH (09:37)
[2016-08-29] MEDS: PANTOPRAZOLE 40 MG TABLET (FP) PO SCH (09:38)
[2016-08-29] MEDS: THIAMINE HCL 100 MG TABLET (FP) PO SCH (21:50)
[2016-08-30] MEDS: GABAPENTIN 100 MG CAPSULE (FP) PO SCH ×3 (06:07→21:29)
[2016-08-30] MEDS: PANTOPRAZOLE 40 MG TABLET (FP) PO SCH (09:40)
[2016-08-30] MEDS: PRENATAL VITAMINS W/ FOLIC ACID TABLET (FP) PO SCH (09:40)
[2016-08-30] MEDS: NICOTINE 14 MG/24 HOURS TOPICAL PATCH TD SCH (09:41)
[2016-08-30] MEDS: LIDOCAINE 5% TOPICAL PATCH TP SCH (09:41)
[2016-08-30] MEDS: NAPROXEN 500 MG TABLET (FP) PO SCH ×2 (09:41→21:29)
[2016-08-30] MEDS: CYCLOBENZAPRINE HCL 10 MG TABLET (FP) PO PRN (09:42)
[2016-08-30] MEDS: THIAMINE HCL 100 MG TABLET (FP) PO SCH (21:29)
[2016-08-30] MEDS: hydrOXYzine PAMOATE 50 MG CAPSULE (FP) PO PRN (21:29)
[2016-08-31] MEDS: GABAPENTIN 100 MG CAPSULE (FP) PO SCH ×3 (06:27→21:33)
[2016-08-31] MEDS: PRENATAL VITAMINS W/ FOLIC ACID TABLET (FP) PO SCH (09:40)
[2016-08-31] MEDS: LIDOCAINE 5% TOPICAL PATCH TP SCH (09:40)
[2016-08-31] MEDS: NAPROXEN 500 MG TABLET (FP) PO SCH ×2 (09:40→21:33)
[2016-08-31] MEDS: NICOTINE 14 MG/24 HOURS TOPICAL PATCH TD SCH (09:40)
[2016-08-31] MEDS: PANTOPRAZOLE 40 MG TABLET (FP) PO SCH (09:40)
[2016-08-31] MEDS: CYCLOBENZAPRINE HCL 10 MG TABLET (FP) PO PRN (09:41)
[2016-08-31] MEDS: THIAMINE HCL 100 MG TABLET (FP) PO SCH (21:33)
[2016-08-31] MEDS: hydrOXYzine PAMOATE 50 MG CAPSULE (FP) PO PRN (21:34)
[2016-09-01] MEDS: GABAPENTIN 100 MG CAPSULE (FP) PO SCH ×3 (06:12→21:03)
[2016-09-01 07:01] VITALS: PULSE 104
[2016-09-01] MEDS: PANTOPRAZOLE 40 MG TABLET (FP) PO SCH (09:34)
[2016-09-01] MEDS: NICOTINE 14 MG/24 HOURS TOPICAL PATCH TD SCH (09:35)
[2016-09-01] MEDS: PRENATAL VITAMINS W/ FOLIC ACID TABLET (FP) PO SCH (09:35)
[2016-09-01] MEDS: NAPROXEN 500 MG TABLET (FP) PO SCH ×2 (09:35→21:03)
[2016-09-01] MEDS: LIDOCAINE 5% TOPICAL PATCH TP SCH (09:35)
[2016-09-01] MEDS: hydrOXYzine PAMOATE 50 MG CAPSULE (FP) PO PRN ×2 (09:36→21:04)
[2016-09-01] MEDS: AMMONIUM LACTATE 12% LOTION 225 GM BOTTLE TP PRN (10:08)
[2016-09-01] MEDS ORDERED: PT OWN MED DRAWER 7, Y5N ONE (10:08)
[2016-09-01] MEDS: THIAMINE HCL 100 MG TABLET (FP) PO SCH (21:03)
[2016-09-02] MEDS: GABAPENTIN 100 MG CAPSULE (FP) PO SCH (06:03)
--- NOTE | 2016-09-02 06:42 | PN ---
Psychiatric Progress Note Vital Signs: Vital Signs Period Temp Pulse Resp BP Sys/[place] Pulse Ox Last 24 Hr 98.2 F 104 16 116/71 Date of Session: 09/02/16 Chief Complaint:: Discharge Note HPI: Patient addressing Alcohol, Cocaine and Cannabis Dependence comorbid with Nicotine Dependence and Substance-Induced SleepmDisorder ROS: Asthma, GERD, LBP were medically managed Current Medications: Active Medications Generic Name Dose Route Start Last Admin Trade Name Freq PRN Reason Stop Dose Admin Acetaminophen 650 mg 08/20/16 13:30 Tylenol - PO Q4H PRN PAIN Al Hydroxide/Mg Hydroxide 30 ml 08/20/16 13:30 Mylanta Oral Suspension - PO Q6H PRN DYSPEPSIA Albuterol Sulfate 2 puff 08/20/16 13:33 08/28/16 23:21 Ventolin Hfa Inhaler - IH 2 puff Q4H PRN Administration ASTHMA Cyclobenzaprine HCl 10 mg 08/20/16 13:33 08/31/16 09:41 Flexeril - PO 10 mg TID PRN Administration MUSCLE SPASMS Eucalyptus/Menthol/Phenol/Sorbitol 1 each 08/20/16 13:30 Cepastat Lozenge - MM Q4H PRN SORE THROAT Gabapentin 100 mg 08/26/16 14:57 09/02/16 06:03 Neurontin - PO 100 mg TID MINDI Administration Guaifenesin 10 ml 08/20/16 13:30 Robitussin Dm - PO Q6H PRN COUGH Hydroxyzine Pamoate 50 mg 08/20/16 13:30 09/01/16 21:04 Vistaril - PO 50 mg Q4H PRN Administration AGITATION Lactic Acid 1 applic 08/26/16 14:56 09/01/16 10:08 Lac-Hydrin 12 TP 1 applic BID PRN Administration DRY SKIN Lidocaine 1 patch 08/22/16 10:00 09/01/16 09:35 Lidoderm Patch - TP Not Given DAILY MINDI Loperamide HCl 4 mg 08/20/16 13:30 Imodium - PO Q6H PRN DIARRHEA Magnesium Citrate 300 ml 08/20/16 13:30 Citroma - PO Q48H PRN CONSTIPATION Magnesium Hydroxide 30 ml 08/20/16 13:30 Milk Of Magnesia - PO DAILY PRN CONSTIPATION Naproxen 500 mg 08/20/16 22:00 09/01/16 21:03 Naprosyn - PO 500 mg BID MINDI Administration Nicotine 14 mg 08/30/16 10:00 09/01/16 09:35 Nicoderm Patch - TD Not Given DAILY MINDI Nicotine Polacrilex 4 mg 08/20/16 13:30 08/28/16 21:28 Nicorette Gum - BC 4 mg Q2H PRN Administration NICOTINE REPLACEMENT RX Pantoprazole Sodium 40 mg 08/21/16 10:00 09/01/16 09:34 Protonix - PO 40 mg DAILY MINDI Administration Multivit/Folic Acid/Iron 1 tab 08/21/16 10:00 09/01/16 09:35 Vitamins (Sjr) - PO 1 tab DAILY MINDI Administration Pseudoephedrine/Triprolidine 1 combo 08/20/16 13:30 Actifed - PO TID PRN NASAL CONGESTION Thiamine HCl 100 mg 08/20/16 22:00 09/01/16 21:03 Vitamin B1 - PO 100 mg HS MINDI Administration Current Side Effect: No Lab tests ordered: Yes Lab tests reviewed: Yes Provider note:: Patient has completed this program today. He has met his treatment goals and will continue to address his issues in outpatient treatment at [facility]. He verbalized understanding of the negative consequences of his addiction and from his participation in this program, he has learned the importance of establishing a sober support network in order to maintain sobriety. He is stable for discharge today Total face to face time:: 35 Mental Status Exam - Mental Status Exam Alert and Oriented to: Time, Place, Person Cognitive Function: Fair Mood: Hopeful, Euthymic Affect: Appropriate Speech Pattern: Clear, Inappropriate Voice Loudness: Normal Thought Process: Intact Thought Disorder: Not Present Hallucinations: Denies Suicidal Ideation: Denies Homicidal Ideation: Denies Insight/Judgement: Fair Sleep: Fair Appetite: Good Muscle strength/Tone: Normal Gait/Station: Normal Psychiatric Treatment Plan - Problem List (1) Alcohol dependence with uncomplicated withdrawal Current Visit: No (2) Cocaine dependence Current Visit: Yes Qualifiers: Substance use status: uncomplicated Qualified Code(s): F14.20 - Cocaine dependence, uncomplicated (3) Cannabis dependence Current Visit: Yes (4) Nicotine dependence Current Visit: Yes Qualifiers: Nicotine product type: cigarettes Substance use status: uncomplicated Qualified Code(s): F17.210 - Nicotine dependence, cigarettes, uncomplicated (5) Asthma Current Visit: Yes Qualifiers: Asthma severity: mild intermittent Asthma complication type: uncomplicated Qualified Code(s): J45.20 - Mild intermittent asthma, uncomplicated (6) GERD (gastroesophageal reflux disease) Current Visit: Yes Qualifiers: Esophagitis presence: without esophagitis Qualified Code(s): K21.9 - Gastro-esophageal reflux disease without esophagitis (7) Low back pain Current Visit: Yes Qualifiers: Chronicity: chronic Back pain laterality: unspecified Sciatica presence: unspecified whether sciatica present Qualified Code(s): M54.5 - Low back pain Initial treatment plan: Patient is discharged today and referred to [facility] for outpatient treatment
[2016-09-02 06:58] VITALS: BP 130/76; TEMP 97.4
[2016-09-02] MEDS: PRENATAL VITAMINS W/ FOLIC ACID TABLET (FP) PO SCH (09:57)
[2016-09-02] MEDS: PANTOPRAZOLE 40 MG TABLET (FP) PO SCH (09:57)
[2016-09-02] MEDS: NICOTINE 14 MG/24 HOURS TOPICAL PATCH TD SCH (09:57)
[2016-09-02] MEDS: NAPROXEN 500 MG TABLET (FP) PO SCH (09:57)
[2016-09-02] MEDS: LIDOCAINE 5% TOPICAL PATCH TP SCH (09:58)
== END 2016-09-02 10:35 | disposition home or self-care (01) | DRG 772 ==
LOC: YASAS 10:22 → Y3W 13:18
PROVIDERS: ADMIT Psychiatry & Neurology Psychiatry; ATTEND Psychiatry & Neurology Psychiatry
PROC: HZ42ZZZ Group Counseling for Substance Abuse Treatment, Cognitive-Behavioral (ICD-10-PCS; principal; 2016-09-02)
DX: F10.230 Alcohol dependence with withdrawal, uncomplicated (principal); F14.20 Cocaine dependence, uncomplicated; F12.20 Cannabis dependence, uncomplicated; F17.210 Nicotine dependence, cigarettes, uncomplicated; F32.9 Major depressive disorder, single episode, unspecified; J45.20 Mild intermittent asthma, uncomplicated; K21.9 Gastro-esophageal reflux disease without esophagitis; M54.5 Low back pain
CPT/HCPCS: 81003; 81015; 93005; 93010

== ENCOUNTER 2021-08-17 12:22 | Inpatient (IN) | payer OTHER ==
[2021-08-17] MEDS ORDERED: DICYCLOMINE HCL 10 MG CAPSULE PO PRN (13:10)
[2021-08-17] MEDS ORDERED: MAG HYDROX/AL HYDROX/SIMETH 30 ML UNIT-DOSE CUP PO PRN (13:10)
[2021-08-17] MEDS ORDERED: BENZOCAINE/MENTHOL (CHLORASEPTIC ) LOZENGE MM PRN (13:10)
[2021-08-17] MEDS ORDERED: LOPERAMIDE HCL 2 MG CAPSULE PO PRN (13:10)
[2021-08-17] MEDS ORDERED: BISMUTH SUBSALICYLATE 262 MG/15 ML BTL PO PRN (13:10)
[2021-08-17] MEDS ORDERED: ACETAMINOPHEN 325 MG TABLET (FP) PO PRN ×2 (13:10)
[2021-08-17] MEDS ORDERED: IBUPROFEN 400 MG TABLET (FP) PO PRN (13:10)
[2021-08-17] MEDS ORDERED: MAGNESIUM CITRATE 300 ML BOTTLE PO PRN (13:10)
[2021-08-17] MEDS ORDERED: MAGNESIUM HYDROX 2400MG/30ML ORAL SUSPENSION 30 ML CUP PO PRN (13:10)
[2021-08-17] MEDS ORDERED: ONDANSETRON *ODT* 4 MG TABLET SL PRN (13:10)
[2021-08-17] MEDS ORDERED: ALBUTEROL SO4 HFA INHALER IH PRN (13:14)
[2021-08-17 14:51] VITALS: BMI 20.3
[2021-08-17] MEDS: hydrOXYzine PAMOATE 25 MG CAPSULE (FP) PO SCH ×3 (18:37→22:57)
[2021-08-17] MEDS: METHOCARBAMOL 500 MG TABLET PO PRN (18:37)
[2021-08-17] MEDS: PRENATAL VITAMINS W/ FOLIC ACID TABLET (FP) PO SCH (19:36)
[2021-08-17] MEDS: NICOTINE 21 MG/24 HOURS TOPICAL PATCH TD SCH (19:36)
[2021-08-17] MEDS: MELATONIN 5 MG TABLETS PO SCH (22:57)
[2021-08-17] MEDS: traZODone HCL 50 MG TABLET (FP) PO SCH (22:57)
[2021-08-17] MEDS: FAMOTIDINE 20 MG TABLET PO SCH (22:57)
[2021-08-17] MEDS: THIAMINE HCL 100 MG TABLET (FP) PO SCH (22:57)
[2021-08-18] MEDS: hydrOXYzine PAMOATE 25 MG CAPSULE (FP) PO SCH ×2 (06:08→10:35)
[2021-08-18] MEDS: NICOTINE 10 MG CARTRIDGE (INHALER) IH PRN (10:34)
[2021-08-18] MEDS: NICOTINE 21 MG/24 HOURS TOPICAL PATCH TD SCH (10:35)
[2021-08-18] MEDS: PRENATAL VITAMINS W/ FOLIC ACID TABLET (FP) PO SCH (10:35)
[2021-08-18] MEDS: METHOCARBAMOL 500 MG TABLET PO PRN (10:35)
[2021-08-18] MEDS: FAMOTIDINE 20 MG TABLET PO SCH ×2 (10:35→22:21)
[2021-08-18] MEDS ORDERED: diazePAM 5 MG TABLET PO PRN (10:57)
[2021-08-18] MEDS ORDERED: hydrOXYzine PAMOATE 25 MG CAPSULE (FP) PO PRN (11:05)
[2021-08-18 11:49] LABS: HEMATOCRIT 39.6 % (35.4-49); HEMOGLOBIN 13.2 GM/dL (11.7-16.9); MCH 29.6 pg (25.7-33.7); MCHC 33.4 g/dl (32.0-35.9); MEAN CELL VOLUME 88.7 fl (80-96); MEAN PLT VOLUME 9.3 fl (7.5-11.1); PLATELET COUNT 271 10^3/uL (134-434); RBC 4.46 M/mm3 (4.00-5.60); RDW 14.5 % (11.9-15.9); WHITE BLOOD COUNT 5.3 K/mm3 (4.0-10.0)
[2021-08-18 11:54] LABS: CALCIUM 9.2 mg/dL (8.5-10.1)
[2021-08-18 11:55] LABS: ALBUMIN 3.8 g/dl (3.4-5.0); BLOOD UREA NITROGEN 15.8 mg/dL (7-18)
[2021-08-18 11:58] LABS: CREATININE 0.9 mg/dL (0.55-1.3)
[2021-08-18 11:59] LABS: TOT PROT 6.9 g/dl (6.4-8.2)
[2021-08-18 12:02] LABS: BILIRUBIN,TOTAL 0.3 mg/dL (0.2-1)
[2021-08-18] MEDS: diazePAM 5 MG TABLET PO SCH ×3 (12:06→22:22)
[2021-08-18] MEDS: MELATONIN 5 MG TABLETS PO SCH (22:20)
[2021-08-18] MEDS: THIAMINE HCL 100 MG TABLET (FP) PO SCH (22:20)
[2021-08-18] MEDS: traZODone HCL 50 MG TABLET (FP) PO SCH (22:27)
[2021-08-19] MEDS: diazePAM 5 MG TABLET PO SCH ×4 (05:20→22:05)
[2021-08-19] MEDS: METHOCARBAMOL 500 MG TABLET PO PRN ×2 (10:10→22:06)
[2021-08-19] MEDS: NICOTINE 21 MG/24 HOURS TOPICAL PATCH TD SCH (10:10)
[2021-08-19] MEDS: FAMOTIDINE 20 MG TABLET PO SCH ×2 (10:10→22:04)
[2021-08-19] MEDS: PRENATAL VITAMINS W/ FOLIC ACID TABLET (FP) PO SCH (10:10)
[2021-08-19] MEDS: NICOTINE 10 MG CARTRIDGE (INHALER) IH PRN (10:36)
[2021-08-19 14:06] LABS: SARS-CoV-2 NAA Not Detected (Not Detected)
[2021-08-19] MEDS: traZODone HCL 50 MG TABLET (FP) PO SCH (22:04)
[2021-08-19] MEDS: THIAMINE HCL 100 MG TABLET (FP) PO SCH (22:04)
[2021-08-19] MEDS: MELATONIN 5 MG TABLETS PO SCH (23:22)
[2021-08-20] MEDS: diazePAM 5 MG TABLET PO SCH ×3 (05:02→22:18)
[2021-08-20] MEDS: NICOTINE 21 MG/24 HOURS TOPICAL PATCH TD SCH (10:10)
[2021-08-20] MEDS: FAMOTIDINE 20 MG TABLET PO SCH ×2 (10:10→22:18)
[2021-08-20] MEDS: PRENATAL VITAMINS W/ FOLIC ACID TABLET (FP) PO SCH (10:11)
[2021-08-20 10:47] LABS: HIV INTERPRETATION NEGATIVE (NEGATIVE)
[2021-08-20] MEDS: traZODone HCL 50 MG TABLET (FP) PO SCH (22:18)
[2021-08-20] MEDS: THIAMINE HCL 100 MG TABLET (FP) PO SCH (22:19)
[2021-08-20] MEDS: MELATONIN 5 MG TABLETS PO SCH (22:19)
[2021-08-21] MEDS ORDERED: diazePAM 5 MG TABLET PO SCH (06:00)
[2021-08-21 09:08] VITALS: BP 105/67; PULSE 103; TEMP 97.3
[2021-08-21] MEDS: PRENATAL VITAMINS W/ FOLIC ACID TABLET (FP) PO SCH (10:11)
[2021-08-21] MEDS: NICOTINE 21 MG/24 HOURS TOPICAL PATCH TD SCH (10:11)
[2021-08-21] MEDS: FAMOTIDINE 20 MG TABLET PO SCH (10:11)
[2021-08-21] MEDS: NICOTINE 10 MG CARTRIDGE (INHALER) IH PRN (10:11)
[2021-08-21] MEDS: METHOCARBAMOL 500 MG TABLET PO PRN (10:13)
[2021-08-22] MEDS ORDERED: diazePAM 5 MG TABLET PO ONE (06:00)
== END 2021-08-21 12:34 | disposition home or self-care (01) | DRG 774 ==
LOC: YASAS 12:22 → Y6N 15:29
PROVIDERS: ADMIT Allergy & Immunology; ATTEND Allergy & Immunology
PROC: HZ2ZZZZ Detoxification Services for Substance Abuse Treatment (ICD-10-PCS; principal; 2021-08-17)
DX: F10.230 Alcohol dependence with withdrawal, uncomplicated (principal); F14.20 Cocaine dependence, uncomplicated; F12.20 Cannabis dependence, uncomplicated; F17.213 Nicotine dependence, cigarettes, with withdrawal; F19.282 Other psychoactive substance dependence with psychoactive substance-induced sleep disorder; F41.8 Other specified anxiety disorders; F32.A Depression, unspecified; J45.909 Unspecified asthma, uncomplicated; K21.9 Gastro-esophageal reflux disease without esophagitis; M54.41 Lumbago with sciatica, right side; G89.29 Other chronic pain
CPT/HCPCS: 36415; 80053; 85027; 86780; 87389; 87811; C9803-CS; U0003; U0005